=== PATIENT | female | born 1930 | race Caucasian/White ===

== ENCOUNTER 2018-12-04 09:58 | Emergency (ER) | payer SELFPAY ==
[~2018-12-04] VITALS: Ht 152.4 cm; Wt 81.6 kg
[2018-12-04 10:00] VITALS: BP 139/82
[2018-12-04 11:06] LABS: BASOPHILS # (AUTO) 0.02 x10^3/uL (0-0.1); BASOPHILS % (AUTO) 0 % (0-1); EOSINOPHILS # (AUTO) 0.15 x10^3/uL (0-0.4); EOSINOPHILS % (AUTO) 2 % (1-7); LYMPHOCYTES # (AUTO) 2.06 x10^3/uL (1-3.4); LYMPHOCYTES % (AUTO) 33 % (22-44); MD NO; MEAN CORPUSCULAR HEMOGLOBIN 28.1 pg (27.0-34.8); MEAN CORPUSCULAR HGB CONC 32.7 g/dL (32.4-35.8); MEAN CORPUSCULAR VOLUME 85.8 fL (80-100); MONOCYTES # (AUTO) 0.49 x10^3/uL (0.2-0.8); MONOCYTES % (AUTO) 8 % (2-9); NEUTROPHILS # (AUTO) 3.45 x10^3/uL (1.8-6.8); NEUTROPHILS % (AUTO) 56 % (42-75); PLATELET COUNT 211 x10^3/uL (130-400); RED BLOOD COUNT 4.43 x10^6/uL (3.82-5.3)
[2018-12-04 11:18] LABS: ANION GAP 6 mmol/L (5-15); CALCIUM 8.9 mg/dL (8.5-10.1); CHLORIDE 108 mmol/L (98-107); CREATININE 1.32 mg/dL (0.55-1.02)
[2018-12-04 11:21] LABS: TROPONIN I < 0.015 ng/mL (0.000-0.045)
--- NOTE | 2018-12-04 11:35 | NUR ---
Patient & Caregiver given shoulder immobilizer & discharge instructions and they have confirmed that they understand the instructions. Patient ambulatory with steady gait.
== END 2018-12-04 11:58 | disposition home or self-care (01) ==
LOC: ED 11:36
DX: M13.112 Monoarthritis, not elsewhere classified, left shoulder (principal); M19.012 Primary osteoarthritis, left shoulder; N18.9 Chronic kidney disease, unspecified; R73.9 Hyperglycemia, unspecified; E78.00 Pure hypercholesterolemia, unspecified
CPT/HCPCS: 29105; 36415; 80048; 84484; 85025; 93005; 99284

== ENCOUNTER 2019-03-05 11:38 | Emergency (ER) | payer MEDICARE ==
[~2019-03-05] VITALS: Ht 154.9 cm; Wt 79.8 kg
--- NOTE | 2019-03-05 13:20 | NUR ---
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 PT DENIES ANY PAIN. SHE IS HERE BECAUSE "I FELT DIZZY THIS MORNING". FAMILY AT BEDSIDE AND ARE GOOD HISTORIANS.
[2019-03-05] MEDS ORDERED: MECLIZINE CHEWABLE 25 MG TAB PO ONE (13:30)
[2019-03-05] MEDS ORDERED: SODIUM CHLORIDE FLUSH 10ML SYR IVF ONE (13:30)
--- NOTE | 2019-03-05 13:35 | NUR ---
PT GIVEN URINE CUP AND IS ATTEMPTING TO PROVIDE A SAMPLE.
[2019-03-05 13:40] LABS: BASOPHILS # (AUTO) 0.05 x10^3/uL (0-0.1); BASOPHILS % (AUTO) 1 % (0-1); EOSINOPHILS # (AUTO) 0.15 x10^3/uL (0-0.4); EOSINOPHILS % (AUTO) 2 % (1-7); LYMPHOCYTES # (AUTO) 2.57 x10^3/uL (1-3.4); LYMPHOCYTES % (AUTO) 29 % (22-44); MD NO; MEAN CORPUSCULAR HEMOGLOBIN 28.3 pg (27.0-34.8); MEAN CORPUSCULAR HGB CONC 32.4 g/dL (32.4-35.8); MEAN CORPUSCULAR VOLUME 87.2 fL (80-100); MEAN PLATELET VOLUME 7.4 fL (7.4-10.4); MONOCYTES # (AUTO) 0.72 x10^3/uL (0.2-0.8); MONOCYTES % (AUTO) 8 % (2-9); NEUTROPHILS % (AUTO) 60 % (42-75); PLATELET COUNT 278 x10^3/uL (130-400); RED CELL DISTRIBUTION WIDTH 14.8 % (9.6-15.2)
[2019-03-05] MEDS ORDERED: OXYB10TA6 PO (13:40)
[2019-03-05] MEDS ORDERED: DULO60CA7 PO (13:41)
[2019-03-05] MEDS ORDERED: VITAMIN D2 (13:42)
[2019-03-05] MEDS ORDERED: BUPR150T6 PO (13:43)
[2019-03-05] MEDS ORDERED: MEVACOR (13:43)
[2019-03-05] MEDS ORDERED: OMEP40CA6 PO (13:44)
[2019-03-05] MEDS ORDERED: HYDR-3245 PO (13:45)
[2019-03-05] MEDS ORDERED: MORP15TA PO (13:46)
--- NOTE | 2019-03-05 13:47 | NUR ---
PT IS UNABLE TO PROVIDE URINE SAMPLE. PROVIDER NOTIFIED.
[2019-03-05 13:49] LABS: ALBUMIN 3.6 g/dL (3.4-5.0); ANION GAP 4 mmol/L (5-15); CALCIUM 9.5 mg/dL (8.5-10.1); CHLORIDE 109 mmol/L (98-107); CREATININE 1.44 mg/dL (0.55-1.02)
[2019-03-05] MEDS ORDERED: MECLIZINE CHEWABLE 25 MG TAB ONE (13:52)
[2019-03-05 13:53] LABS: TROPONIN I < 0.015 ng/mL (0.000-0.045)
--- NOTE | 2019-03-05 13:53 | NUR ---
PT MEDICATED WITH MECLIZINE. JENNIFER.
--- NOTE | 2019-03-05 14:00 | NUR ---
PT SAYS SHE STILL CAN'T URINATE. PT TAKEN TO CT, BLADDER SCANNER IN ROOM - WILL BLADDER SCAN UPON RETURN.
--- NOTE | 2019-03-05 14:47 | NUR ---
I ATTEMPTED TO BLADDER SCAN PT, PT WANTS TO ATTEMPT TO URINATE. PT STATES "I CAN GO NOW". ATTEMPTING TO GET A URINE SAMPLE. PT REQUESTED BSC, THEN WANTED TO USE THE BATHROOM INSTEAD. PT IN BATHROOM.
[2019-03-05 15:10] LABS: MICROSCOPIC AUTO
[2019-03-05 15:11] LABS: CULTURE INDICATED? YES
[2019-03-05] MEDS ORDERED: CEFTRIAXONE PMX 1GM/50ML 50 ML IV ONE (15:30)
[2019-03-05] MEDS ORDERED: CEFTRIAXONE PMX 1GM/50ML 50 ML ONE (15:31)
--- NOTE | 2019-03-05 16:03 | NUR ---
IV STARTED, ROCEPHIN RUNNING. PT GIVEN WATER. DENIES ANY OTHER NEEDS. VSS. NAD.
[2019-03-05 16:20] VITALS: BP 110/45
--- NOTE | 2019-03-05 16:21 | NUR ---
CASSI COMPLETED. POC DISCUSSED WITH PT AND FAMILY, THEY VERBALIZED UNDERSTANDING. VSS. NAD. PT DENIES PAIN AND WANTS TO GO HOME.
--- NOTE | 2019-03-05 16:39 | NUR ---
Patient/Caregiver given discharge instructions and they have confirmed that they understand the instructions. Patient wheeled out by family member.
== END 2019-03-05 16:40 | disposition home or self-care (01) ==
LOC: ED 16:34
DX: N30.01 Acute cystitis with hematuria (principal); N18.9 Chronic kidney disease, unspecified; E78.00 Pure hypercholesterolemia, unspecified; F32.9 Major depressive disorder, single episode, unspecified; M19.90 Unspecified osteoarthritis, unspecified site; Z90.49 Acquired absence of other specified parts of digestive tract
CPT/HCPCS: 36415; 70450; 71045; 80048; 81001; 82040; 83735; 84443; 84484; 85025; 87077; 87086; 93005; 96365; 99284; J0696; 87186

== ENCOUNTER → 2019-08-15 | Outpatient (CLI) | payer MEDICARE ==
[~2019-08-15] MED LIST: BUPR150T6 PO; DULO60CA7 PO; HYDR-3245 PO; MEVACOR; MORP15TA PO; OMEP40CA42 PO; OXYB10TA6 PO; VITAMIN D2
== END | disposition home or self-care (01) ==
LOC: CFH 11:14
PROVIDERS: ATTEND Physical Medicine & Rehabilitation
DX: M25.512 Pain in left shoulder (principal)